=== PATIENT | female | born 1980 | race Caucasian/White ===

== ENCOUNTER 2019-04-28 12:42 | Emergency (ER) | payer MEDICAID ==
[~2019-04-28] VITALS: Ht 165.1 cm; Wt 83.5 kg
[2019-04-28 13:06] VITALS: Ht 165.1 cm; Wt 83.5 kg
[2019-04-28 14:38] LABS: CALCIUM 9.2 mg/dL (8.5-10.1); CARBON DIOXIDE 28.5 mmol/L (21-32); CHLORIDE SERUM 103 mmol/L (98-107); CREATININE SERUM 0.6 mg/dL (0.6-1.0); GFR1 > 60 mL/min; GLUCOSE SERUM 87 mg/dL (74-106); POTASSIUM SERUM 4.2 mmol/L (3.5-5.1); SODIUM SERUM 139 mmol/L (136-145)
[2019-04-28 14:41] LABS: BASOPHIL % 0.4 % (0-2); PLATELET COUNT 281 x10^3mcL (130-400); RED CELL DISTRIBUTION WIDTH 13.5 % (11.5-14.5)
[2019-04-28 14:43] LABS: ALBUMIN 3.5 g/dL (3.4-5.0); ALKALINE PHOSPHATASE 102 U/L (46-116); ALT/SGPT 41 U/L (14-59); AST/SGOT 26 U/L (15-37); BILIRUBIN TOTAL 0.3 mg/dL (0.20-1.00); TOTAL PROTEIN, SERUM 7.5 g/dL (6.4-8.2)
[2019-04-28 15:32] VITALS: BP 132/83
== END 2019-04-28 15:32 | disposition home or self-care (01) ==
LOC: ED 12:42
PROVIDERS: Emergency Medicine
DX: R60.0 Localized edema (principal); R22.41 Localized swelling, mass and lump, right lower limb; R22.42 Localized swelling, mass and lump, left lower limb; I10 Essential (primary) hypertension; R06.02 Shortness of breath
CPT/HCPCS: 83880; J1940